=== PATIENT | female | born 1980 | race American Indian/Alaskan Native ===

== ENCOUNTER 2016-09-15 06:20 | Inpatient (IN) | payer MEDICAID ==
[2016-09-11 11:51] LABS: Alanine Aminotransferase 12 units/L (7-56); Albumin 3.7 g/dL (3.9-5); Alkaline Phosphatase 67 units/L (35-129); Anion Gap 15 mmol/L; Bilirubin,Total 0.6 mg/dL (0.1-1.2); Blood Urea Nitrogen 7 mg/dL (7-17); Calcium 8.4 mg/dL (8.4-10.2); Carbon Dioxide 27 mmol/L (22-30); Chloride 99.3 mmol/L (98-107); Glucose 92 mg/dL (65-100); Potassium 4.3 mmol/L (3.6-5.0); Sodium 137 mmol/L (137-145); Total Protein 7.5 g/dL (6.3-8.2)
--- NOTE | 2016-09-15 13:05 | Admit Criteria Form ---
Admission Criteria Documentation: AMBULATORY SURGERY EXCEPTION CRITERIA Ambulatory Surgery Exception Criteria ( Place 'X' for any and all applicable criteria): Surgery or procedure performed on ambulatory basis may require inpatient stay for[A] ANY ONE of the following(1)(2)(3)(4)(5)(6)(7)(8)(9): [X] I. A preoperative situation, condition, or finding that warrants inpatient stay as indicated by ANY ONE of the following: [] a) Inpatient care needed because of severity of a disease or condition rather than the surgery (eg, severe cardiac or respiratory disease, severe infection) (15) (16 ) (17) (18) [] b) Emergent procedure (eg, angioplasty for acute ischemia)(19) [] c) Complex surgical approach or situation as indicated by ANY ONE of the following(3): [] i) Open approach needed instead of usual endoscopic, transcatheter, or other less invasive procedure [] ii) Difficult approach because of previous operation [] iii) Airway monitoring required after open neck procedures(20)(21) [] iv) Large mass requiring unusually extensive dissection [] v) Additional complicating feature requiring inpatient care (eg, drain management)(22(23): [X] d) Major surgery in a pt with high anesthetic risk as indicated by ANY ONE of the following (2)(3)(5)(7)(8): [X] i) ASA risk class III or higher (severe systemic disease impairing function) [D] [] ii) Advanced age (eg, older than 85 years)(14)(24) [] iii) Symptomatic heart failure(25) [] iv) Symptomatic asthma or COPD(8)(21) [] v) Morbid obesity with hemodynamic or respiratory problems(20)( 21)(26)(27) [] vi) Obstructive sleep apnea(20)(21) [] vii) Former premature infants who are younger than 60 weeks [] viii) High risk for severe postoperative abnormalities (eg, severe postoperative hypocalcemia after parathyroidectomy for severe hyperparathyroidism)(27)( 28) [] ix) Unstable angina(25) [] e) Drug-related risk requiring inpatient stay as indicated by ANY ONE of the following(5)(10)(14)(32)(33) [] i) Procedure requires discontinuing drugs or other therapy (eg , antiarrhythmic medication, antiseizure medication), which necessitates inpatient observation or treatment.(18)(31) [] ii) Major surgery and high risk drug use as indicated by ANY ONE of the following: [] 1) Active abuse of cocaine or similar drug [] 2) Monoamine oxidase inhibitor use [] 3) Other drug identified as posing risk [] f) Inadequate outpatient care situation as indicated by ANY ONE of the following(5)(10)(14)(32)(33) [] i) Patient lives remote from medical facility and procedure has urgent complication potential, and temporary nearby residence cannot be arranged [] ii) Patient will have postprocedure incapacitation and inadequate assistance at home, or alternative level of care cannot be arranged. [] iii) Patient will have long general anesthesia or procedure side effect resolution time, and competent person to stay with patient on first postoperative night at home or alternative level of care cannot be arranged. []iv) Other inadequate outpatient situation that cannot be handled by other means [] II. A perioperative event, condition, or finding that warrants inpatient stay as indicated by ANY ONE of the following (1)(2)(3): [] a) Inadequate physiologic recovery: cardiovascular, respiratory, or hemodynamic status not normal or near preoperative baseline(18) [] b) Hemodynamic instability [] c) Patient not alert with near normal or baseline mental status [] d) Temperature not normal or as expected and not appropriate for outpatient treatment of condition [] e) Ambulatory or appropriate activity level status not yet achieved post procedure [E](34)(35)(36) [] f) Operative site not appropriate (eg, unexpected or excessive drainage or bleeding) [] g) Postoperative effects not resolved or adequately managed (eg, significant pain or vomiting not appropriate for outpatient or next level of care)(10)(12) [] h) Complicating features requiring inpatient care as indicated by ANY ONE of the following(37): [] i) Severe complications of procedure (eg, bowel injury, airway compromise, vascular injury,severe hemorrhage) [] ii) Extensive (eg, dissection far beyond usual scope of procedure ) or prolonged (eg, 120 minutes beyond usual) surgery needed requiring inpatient postoperative care [] iii) Conversion to an open or complex procedure that requires inpatient care (eg, open vs laparoscopic cholecystectomy, abdominal vs vaginal hysterectomy)(38) [] iv) Comorbid condition or test result identified during or post procedure that requires inpatient care (7) [] v) Malignant hyperthermia(30) [] vi) Other complicating feature requiring inpatient care(22)(23) Inpatient stay may be needed until ALL of the following are present (1)(2)(3)(4) (5)(6)(10)(14)(33)(40): []a) Physiologic recovery: cardiovascular, respiratory, and hemodynamic status normal or near preoperative baseline []b) Hemodynamic stability []c) Patient alert, with near normal or baseline mental status []d) Temperature appropriate: patient afebrile or temperature appropriate for outpt treatment of condition []e) Activity level appropriate: ambulatory or appropriate activity level post procedure []f) Operative site appropriate as indicated by ALL of the following: []i) Site dry or with expected drainage []ii) Any blood noted is as expected for procedure. []g) Postoperative effects resolved or managed as indicated by ALL of the following: []i) Pain management appropriate for outpatient (or next level of) care(10) []ii) Minimal nausea and vomiting: if present, successfully treated with oral medication(12) []iii) Headache, dizziness, or drowsiness (if present) are mild. []h) Voiding status acceptable as indicated by ANY ONE of the following: []i) Voiding spontaneously []ii) No voiding but instructions given for follow-up in 6 to 8 hours []iii) Urinary catheter in place, and instructions given for follow-up []i) Complicating features requiring inpatient care manageable at a lower level of care(37) []j) Comorbid conditions manageable at a lower level of care(37) The original [employer] content created by [employer] has been revised. The portions of the content which have been revised are identified through the use of italic text or in bold, and [address] [facility] [email or web address] has neither reviewed nor approved the modified material. All other unmodified content is copyright [employer]. Please see references footnoted in the original [employer] edition 2016 Admission Criteria Met: Yes
[2016-09-15] MEDS ORDERED: XYLOCAINE MPF 2% ONE (13:56)
[2016-09-15] MEDS ORDERED: DECADRON ONE (13:56)
[2016-09-15] MEDS ORDERED: DILAUDID ONE (13:56)
[2016-09-15] MEDS ORDERED: DIPRIVAN 10 MG/ML IV ONE (13:56)
[2016-09-15] MEDS ORDERED: ZEMURON IV ONE (13:57)
[2016-09-15] MEDS ORDERED: ZOFRAN ONE (13:57)
--- NOTE | 2016-09-15 13:57 | Anesthesia Consultation ---
Anesthesia Consult and Med Hx Date of service: 09/15/16 - Airway Anesthetic Teeth Evaluation: Good ROM Head & Neck: Adequate Mental/Hyoid Distance: Adequate Mallampati Class: Class II Intubation Access Assessment: Probably Good - Pulmonary Exam CTA: Yes - Cardiac Exam Cardiac Exam: RRR - Pre-Operative Health Status ASA Pre-Surgery Classification: ASA3 Proposed Anesthetic Plan: General - Pulmonary Hx Smoking: Yes (CIGARETTES 1 PPM X 6 YRS, QUIT IN 1998) Hx Asthma: Yes Hx Sleep Apnea: No - Cardiovascular System Hx Hypertension: No - Central Nervous System Hx Psychiatric Problems: No - Gastrointestinal Hx Gastroesophageal Reflux Disease: Yes (mild) - Other Systems Hx Cancer: No Hx Obesity: Yes (morbid) - Additional Comments Anesthesia Medical History Comments: No problems with previous anesthesias.
[2016-09-15] MEDS ORDERED: NACL 0.9% 1000 ML 1,000 ML IV SCH (14:00)
[2016-09-15] MEDS ORDERED: PEPCID PO NR (14:00)
[2016-09-15] MEDS ORDERED: VERSED IV NR (14:00)
[2016-09-15] MEDS ORDERED: TRANSDERM-SCOP TD NR (14:00)
[2016-09-15] MEDS ORDERED: NACL BACTERIOSTATIC INFILTRATI ONE (14:08)
[2016-09-15] MEDS ORDERED: DILAUDID IV PRN (14:21)
[2016-09-15] MEDS ORDERED: ZOFRAN IV PRN (14:21)
--- NOTE | 2016-09-15 14:21 | Anesthesia Day of Surgery ---
Anesthesia Day of Surgery - Day of Surgery Patient Examined: Yes Patient H&P Reviewed: Yes Patient is NPO: Yes
[2016-09-15] MEDS ORDERED: PEPCID IV NR (15:00)
[2016-09-15] MEDS ORDERED: ANCEF/STERILE WATER 2 GM/20 ML IV NR (16:00)
[2016-09-15] MEDS ORDERED: FLAGYL 500 MG/100 ML 100 ML IV NR (16:00)
[2016-09-15] MEDS ORDERED: LOVENOX SUB-Q NR (16:00)
[2016-09-15] MEDS ORDERED: BENADRYL IV PRN (16:48)
[2016-09-15] MEDS ORDERED: MARCAINE-EPI 0.5%-1:200,000 INFILTRATI ONE (16:50)
[2016-09-15] MEDS ORDERED: XYLOCAINE 1% 20 mL INFILTRATI ONE (16:59)
[2016-09-15] MEDS ORDERED: NACL 0.9% IR ONE (16:59)
[2016-09-15] MEDS ORDERED: ePHEDrine SULFATE ONE (17:15)
[2016-09-15] MEDS ORDERED: TORADOL IV SCH (18:00)
[2016-09-15] MEDS ORDERED: NACL 0.9% 1000 ML 1,000 ML ONE (18:01)
--- NOTE | 2016-09-15 20:11 | Post Anesthesia Evaluation ---
- Post Anesthesia Evaluation Patient Participated: Yes Airway Patent: Yes Stable Respiratory Function: Yes Nausea/Vomiting: No Temp > 96.8F: Yes Pain Manageable: Yes Adequeate Hydration: Yes Anesthesia Complications: No Block Receding Appropriately: Not Applicable Patient on Ventilator: No
[2016-09-15] MEDS ORDERED: SUBLIMAZE ONE (20:22)
[2016-09-15] MEDS ORDERED: ATIVAN ONE (20:45)
[2016-09-15 20:48] LABS: Hematocrit 38.5 % (30.3-42.9); Hemoglobin 12.3 gm/dl (10.1-14.3); Mean Corpuscular HGB Conc 32 % (30-34); Mean Corpuscular Hemoglobin 28 pg (28-32); Mean Corpuscular Volume 87 fl (79-97); Platelet Count 337 K/mm3 (140-440); Red Blood Count 4.44 M/mm3 (3.65-5.03); Red Cell Distribution Width 14.5 % (13.2-15.2); White Blood Count 12.5 K/mm3 (4.5-11.0)
[2016-09-15 21:25] LABS: Creatine Kinase MB 2.5 ng/mL (0.0-4.0)
[2016-09-15 21:26] LABS: Creatine Kinase 204 units/L (30-135)
--- NOTE | 2016-09-15 21:28 | Event Note ---
Date: 09/15/16 Code MET called. Arrived at bedside. Respiratory therapist, nurses and family at patient's bedside. Patient is complaining of epigastric chest pain and difficulty breathing. Upon arrival patient is on 100% non-rebreather mask, oxygen saturation 100%, HR 99, BP 130/80's. Chest auscultation revealed clear breath sounds, Heart: normal S1S2. Patient answers appropriately to questions. Fentanyl given for chest pain. ECG done was unremarkable. Stat H/H and cardiac enzymes sent. On further evaluation it appears that patient was having brief episodes of seizure, however oxygen saturation remains 100%. Patient was not post-ictal and she continues to answer questions appropriately soon after. Hospitalist consult obtained at the request of Dr Bullock whom was notified. Ativan given and Hospitalist assumed care. Patients daughters at bedside emotionally upset, aggressive and accusatory. Security requested to be at the bedside.
[2016-09-15] MEDS ORDERED: SUBLIMAZE IV ONE (21:30)
--- NOTE | 2016-09-15 22:00 | Consultation ---
History of Present Illness - Reason for Consult Consult date: 09/15/16 Medical management Requesting physician: HUMBERTO BULLOCK - History of Present Illness Patient having myoclonic movements intermittently every one or 2 minutespost op.Conscious and alert after being given Ativan 2 mg iv and iv fluids. Anesthesia note: Code MET called. Arrived at bedside. Respiratory therapist, nurses and family at patient's bedside. Patient is complaining of epigastric chest pain and difficulty breathing. Upon arrival patient is on 100% non-rebreather mask, oxygen saturation 100%, HR 99, BP 130/80's. Chest auscultation revealed clear breath sounds, Heart: normal S1S2. Patient answers appropriately to questions. Fentanyl given for chest pain. ECG done was unremarkable. Stat H/H and cardiac enzymes sent. On further evaluation it appears that patient was having brief episodes of seizure, however oxygen saturation remains 100%. Patient was not post-ictal and she continues to answer questions appropriately soon after. Hospitalist consult obtained at the request of Dr Bullock whom was notified. Ativan given and Hospitalist assumed care. Patients daughters at bedside emotionally upset, aggressive and accusatory. Security requested to be at the bedside. Hx of Asthma and obesity Past History Past Medical History: other (asthma) Past Surgical History: Other (Gastric sleeve surgery) Medications and Allergies Allergies Allergy/AdvReac Type Severity Reaction Status Date / Time morphine Allergy Itching,RED Verified 09/15/16 17:19 NESS Home Medications Medication Instructions Recorded Confirmed Last Taken Type ALBUTEROL Inhaler [Proair] 2 puff IH QID PRN 09/08/16 09/15/16 06/22/16 History Active Meds: Active Medications Cefazolin Sodium (Ancef/Sterile Water 2 Gm/20 Ml) 2 gm IV PREOP NR Stop: 09/18/16 15:59 Diphenhydramine HCl (Benadryl) 25 mg IV Q6H PRN PRN Reason: Itching Enoxaparin Sodium (Lovenox) 40 mg SUB-Q QDAY OMAR Famotidine (Pepcid) 20 mg IV PREOP NR Stop: 09/15/16 23:59 Last Admin: 09/15/16 15:12 Dose: 20 mg Hydromorphone HCl (Dilaudid) 0.5 mg IV Q10MIN PRN PRN Reason: Pain , Severe (7-10) Stop: 09/18/16 14:22 Hydromorphone HCl (Dilaudid) 0.5 mg IV Q3H PRN PRN Reason: Pain , Severe (7-10) Sodium Chloride (Nacl 0.9% 1000 Ml) 1,000 mls @ 75 mls/hr IV DIRECT OMAR Last Admin: 09/15/16 15:08 Dose: 75 mls/hr Cefazolin Sodium (Ancef/Ns 1 Gm/50 Ml) 50 mls @ 100 mls/hr IV Q8H OMAR PRN Reason: Protocol Stop: 09/16/16 01:29 Lactated Ringer's (Lactated Ringers) 1,000 mls @ 150 mls/hr IV DIRECT OMAR Ketorolac Tromethamine (Toradol) 30 mg IV Q6H OMAR Stop: 09/17/16 17:59 Midazolam HCl (Versed) 2 mg IV PREOP NR Stop: 09/15/16 23:59 Last Admin: 09/15/16 15:21 Dose: 2 mg Ondansetron HCl (Zofran) 4 mg IV Q8H PRN PRN Reason: Nausea And Vomiting Scopolamine (Transderm-Scop) 1 each TD PREOP NR Stop: 09/18/16 13:59 Last Admin: 09/15/16 15:11 Dose: 1 each Exam - Constitutional Vitals: Temp Pulse Resp BP Pulse Ox 98.7 F 63 18 112/47 100 09/15/16 14:50 09/15/16 14:50 09/15/16 14:50 09/15/16 14:50 09/15/16 19:55 General appearance: Present: no acute distress, well-nourished - EENT Eyes: Present: PERRL ENT: hearing intact, clear oral mucosa - Neck Neck: Present: supple, normal ROM - Respiratory Respiratory effort: normal Respiratory: bilateral: CTA - Cardiovascular Heart Sounds: Present: S1 & S2. Absent: rub, click - Extremities Extremities: pulses symmetrical, No edema Peripheral Pulses: within normal limits - Abdominal General gastrointestinal: Present: soft, non-tender, non-distended, normal bowel sounds Female genitourinary: Present: normal - Integumentary Integumentary: Present: clear, warm, dry - Musculoskeletal Musculoskeletal: gait normal, strength equal bilaterally - Psychiatric Psychiatric: appropriate mood/affect, intact judgment & insight - Neurologic Neurologic: CNII-XII intact, moves all extremities Results - Labs CBC & Chem 7: 09/15/16 20:34 09/11/16 11:27 Labs: Abnormal lab results 09/15/16 09/15/16 09/15/16 Range/Units 20:17 20:34 20:34 WBC 12.5 H (4.5-11.0) K/mm3 POC Glucose 127 H (70-105) Total Creatine Kinase 204 H (30-135) units/L Assessment and Plan Patient has hx of Asthma Xopenex Neb tx Q* Post op Myoclonic movements Ativan 2mg iv given Ativan 1 mg q3 h prn
[2016-09-15] MEDS ORDERED: ATIVAN IV PRN (22:06)
[2016-09-15] MEDS ORDERED: XOPENEX IH PRN (22:08)
[2016-09-15] MEDS ORDERED: PROVENTIL IH PRN (22:28)
[2016-09-15] MEDS ORDERED: KEPPRA 1,000 MG in D5W 100 ML IV SCH (23:00)
--- NOTE | 2016-09-15 23:04 | Event Note ---
Date: 09/15/16 Patient continues to have Myocolonic seizures versus Tonic clonic seizures inspite of Ativan.1 gm Keppra ordered and patient transferred to ICU with a wastewater plant operator consult and Neuro consult.
[2016-09-15] MEDS: DILAUDID IV PRN (23:52)
[2016-09-16] MEDS: ANCEF/NS 1 GM/50 ML 50 ML IV SCH ×2 (01:00→07:53)
[2016-09-16 01:10] LABS: BUN/Creatinine Ratio 8.57; Blood Urea Nitrogen 6 mg/dL (7-17); Calcium 7.8 mg/dL (8.4-10.2); Carbon Dioxide 22 mmol/L (22-30); Chloride 101.6 mmol/L (98-107); Glucose 145 mg/dL (65-100); Sodium 136 mmol/L (137-145)
[2016-09-16 01:11] LABS: Anion Gap 16 mmol/L
[2016-09-16] MEDS: DILAUDID IV PRN ×3 (02:54→07:51)
[2016-09-16 05:48] LABS: Magnesium 1.9 mg/dL (1.7-2.3); Phosphorous 2.7 mg/dL (2.5-4.5)
--- NOTE | 2016-09-16 07:21 | Cat Scan Report ---
FINAL REPORT PROCEDURE: CT HEAD/BRAIN WO CON TECHNIQUE: Computerized tomography of the head was performed without contrast material. HISTORY: seizures post op COMPARISON: No prior studies are available for comparison. FINDINGS: Skull and scalp: Normal. Paranasal sinuses: There fluid in the left maxillary sinus.. Ventricles and subarachnoid spaces: Normal. Cerebrum: No evidence of hemorrhage, acute infarction or mass . Cerebellum and brainstem: No evidence of hemorrhage, acute infarction or mass. Vasculature: Normal. Comments: There are scattered ossified areas of the falx.. IMPRESSION: There is no acute intracranial abnormality. There is left maxillary sinusitis.
[2016-09-16] MEDS ORDERED: LOVENOX SUB-Q SCH (10:00)
[2016-09-16 10:17] LABS: Basophils % (Auto) 0.7 % (0.0-1.8); Eosinophils % (Auto) 0.1 % (0.0-4.3); Hematocrit 37.5 % (30.3-42.9); Hemoglobin 12.2 gm/dl (10.1-14.3); Mean Corpuscular HGB Conc 33 % (30-34); Mean Corpuscular Hemoglobin 28 pg (28-32); Mean Corpuscular Volume 86 fl (79-97); Platelet Count 327 K/mm3 (140-440); Red Blood Count 4.39 M/mm3 (3.65-5.03); Red Cell Distribution Width 14.1 % (13.2-15.2); White Blood Count 10.5 K/mm3 (4.5-11.0)
[2016-09-16 10:36] LABS: Alanine Aminotransferase 20 units/L (7-56); Albumin 3.5 g/dL (3.9-5); Albumin/Globulin Ratio 0.9 %; Alkaline Phosphatase 56 units/L (35-129); Anion Gap 19 mmol/L; BUN/Creatinine Ratio 8.57; Bilirubin,Total 0.7 mg/dL (0.1-1.2); Blood Urea Nitrogen 6 mg/dL (7-17); Calcium 8.1 mg/dL (8.4-10.2); Carbon Dioxide 23 mmol/L (22-30); Chloride 101.1 mmol/L (98-107); Glucose 97 mg/dL (65-100); Potassium 4.3 mmol/L (3.6-5.0); Sodium 139 mmol/L (137-145); Total Protein 7.3 g/dL (6.3-8.2)
--- NOTE | 2016-09-16 10:55 | Consultation ---
History of Present Illness Consult date: 09/16/16 Requesting physician: MARIAELENA SANABRIA Reason for consult: other (Seizures; AMS) History of present illness: PULMONARY/CCM CONSULT NOTE (Full dictation # [id number]) Please see dictated notes for full details A&P: - prn Ativan - stat EEG +/- neurology evaluation - stat CXR (re: chest Pain) - ABG (r/o sub-clinical respiratory compromise) - discontinue all opiates - may ultimately need psych evaluation ...will follow along Past History Past Medical History: other (asthma) Past Surgical History: Other (Gastric sleeve surgery) Medications and Allergies Allergies Allergy/AdvReac Type Severity Reaction Status Date / Time morphine Allergy Itching,RED Verified 09/15/16 17:19 NESS Home Medications Medication Instructions Recorded Confirmed Last Taken Type ALBUTEROL Inhaler [Proair] 2 puff IH QID PRN 09/08/16 09/15/16 06/22/16 History Active Meds: Active Medications Albuterol (Proventil) 2.5 mg IH Q6HRT PRN PRN Reason: Shortness Of Breath Last Admin: 09/16/16 10:41 Dose: 2.5 mg Diphenhydramine HCl (Benadryl) 25 mg IV Q6H PRN PRN Reason: Itching Last Admin: 09/16/16 04:54 Dose: 25 mg Enoxaparin Sodium (Lovenox) 40 mg SUB-Q QDAY OMAR Famotidine (Pepcid) 20 mg IV BID OMAR Hydromorphone HCl (Dilaudid) 0.5 mg IV Q3H PRN PRN Reason: Pain , Severe (7-10) Last Admin: 09/16/16 07:51 Dose: 0.5 mg Sodium Chloride (Nacl 0.9% 1000 Ml) 1,000 mls @ 75 mls/hr IV DIRECT OMAR Last Admin: 09/15/16 15:08 Dose: 75 mls/hr Lactated Ringer's (Lactated Ringers) 1,000 mls @ 150 mls/hr IV DIRECT OMAR Levetiracetam 1,000 mg/ (Dextrose) 110 mls @ 400 mls/hr IV Q12HR OMAR Last Admin: 09/15/16 23:00 Dose: 400 mls/hr Ketorolac Tromethamine (Toradol) 15 mg IV Q6HR OMAR Stop: 09/21/16 00:00 Ondansetron HCl (Zofran) 4 mg IV Q8H PRN PRN Reason: Nausea And Vomiting Scopolamine (Transderm-Scop) 1 each TD PREOP NR Stop: 09/18/16 13:59 Last Admin: 09/15/16 15:11 Dose: 1 each Physical Examination Vital signs: Vital Signs Temp Pulse Resp BP Pulse Ox 98.7 F 63 18 112/47 98 09/15/16 13:10 09/15/16 13:10 09/15/16 13:10 09/15/16 13:10 09/15/16 13:10 Results - Laboratory Findings CBC and BMP: 09/16/16 09:58 09/16/16 09:58 Abnormal lab findings: Abnormal Labs 09/11/16 09/15/16 09/15/16 11:27 20:17 20:34 WBC Lymph % (Auto) Seg Neutrophils % Seg Neutrophils # Sodium BUN Glucose POC Glucose 127 H Calcium Total Creatine Kinase 204 H Albumin 3.7 L 09/15/16 09/15/16 09/16/16 20:34 23:47 09:58 WBC 12.5 H Lymph % (Auto) 12.7 L Seg Neutrophils % 81.5 H Seg Neutrophils # 8.5 H Sodium 136 L BUN 6 L Glucose 145 H POC Glucose Calcium 7.8 L Total Creatine Kinase Albumin 09/16/16 09:58 WBC Lymph % (Auto) Seg Neutrophils % Seg Neutrophils # Sodium BUN 6 L Glucose POC Glucose Calcium 8.1 L Total Creatine Kinase Albumin 3.5 L
[2016-09-16] MEDS ORDERED: ATIVAN ONE (10:56)
[2016-09-16 11:19] LABS: ISTAT Base Excess -4; ISTAT HCO3 21.4; ISTAT PCO2 38.6 (35-45); ISTAT PH 7.352 (7.35-7.45); ISTAT PO2 137 (80-105); ISTAT SO2 99; ISTAT TCO2 23
--- NOTE | 2016-09-16 11:32 | XRay Report ---
AP CHEST: HISTORY: chest pain AP view of the chest demonstrates a normal mediastinal and cardiac contour with clear lungs and normal bony and soft tissue structures. IMPRESSION: Unremarkable AP chest.
[2016-09-16] MEDS: TORADOL IV SCH ×4 (12:00→18:07)
[2016-09-16] MEDS ORDERED: ATIVAN IV PRN (12:04)
--- NOTE | 2016-09-16 12:29 | Progress Note ---
Assessment and Plan POD#1 s/p lap Sleeve gastrectomy being worked up for seizure disroder. Doing well from surgical stand point OK for d.c from our stand point when cleared by ICU/Internal medicine Subjective Date of service: 09/16/16 Narrative: Underwent code MET last night and transfered to CCU. Pateint had tonicoclonic movements with associated chest pain (chronic complaint) but didnt have post ixctal state responding questions appropriately. Discussed with family and appear to be a "reaction" to narcotics since she experienced similar episode after last Patient resting comfortable complains of on/off upper retrosternal pain. She have had this pain several times in the past and has been fully worked up. Not cardiogenic or lung/esophageal origin. Was told to be costochondritis. Has been seen in the ER for it multiple times in the past. No pain at this time tho. Objective Vital Signs - 12hr 09/16/16 09/16/16 09/16/16 00:32 01:00 02:00 Temperature Pulse Rate 98 H 84 Pulse Rate [ Bilateral Throughout] Respiratory 24 18 15 Rate Respiratory Rate [Bilateral Throughout] Blood Pressure 127/72 131/72 O2 Sat by Pulse 100 99 Oximetry 09/16/16 09/16/16 09/16/16 02:55 02:57 02:59 Temperature Pulse Rate 97 H 95 H 80 Pulse Rate [ Bilateral Throughout] Respiratory 15 15 13 Rate Respiratory Rate [Bilateral Throughout] Blood Pressure 131/72 131/72 131/72 O2 Sat by Pulse 100 100 100 Oximetry 09/16/16 09/16/16 09/16/16 03:00 03:13 04:00 Temperature 98.3 F Pulse Rate 84 86 82 Pulse Rate [ Bilateral Throughout] Respiratory 14 13 14 Rate Respiratory Rate [Bilateral Throughout] Blood Pressure 138/83 138/83 120/73 O2 Sat by Pulse 100 100 100 Oximetry 09/16/16 09/16/16 09/16/16 04:59 05:00 05:01 Temperature Pulse Rate 94 H 100 H 91 H Pulse Rate [ Bilateral Throughout] Respiratory 11 L 12 11 L Rate Respiratory Rate [Bilateral Throughout] Blood Pressure 120/73 133/77 133/77 O2 Sat by Pulse 100 99 Oximetry 09/16/16 09/16/16 09/16/16 05:33 05:35 06:00 Temperature Pulse Rate 85 Pulse Rate [ Bilateral Throughout] Respiratory 17 Rate Respiratory Rate [Bilateral Throughout] Blood Pressure 133/77 133/77 128/73 O2 Sat by Pulse 100 100 99 Oximetry 09/16/16 09/16/16 09/16/16 07:00 08:00 08:27 Temperature 98.1 F Pulse Rate 83 70 75 Pulse Rate [ Bilateral Throughout] Respiratory 18 11 L 11 L Rate Respiratory Rate [Bilateral Throughout] Blood Pressure 117/70 121/72 121/72 O2 Sat by Pulse 96 100 100 Oximetry 09/16/16 09/16/16 09/16/16 09:01 09:51 10:00 Temperature Pulse Rate 82 74 Pulse Rate [ Bilateral Throughout] Respiratory 13 13 Rate Respiratory Rate [Bilateral Throughout] Blood Pressure 121/72 121/72 O2 Sat by Pulse 100 100 100 Oximetry 09/16/16 09/16/16 09/16/16 10:01 10:31 10:33 Temperature Pulse Rate 85 86 83 Pulse Rate [ Bilateral Throughout] Respiratory 16 14 13 Rate Respiratory Rate [Bilateral Throughout] Blood Pressure 121/72 121/72 121/72 O2 Sat by Pulse 100 100 100 Oximetry 09/16/16 09/16/16 10:41 11:01 Temperature Pulse Rate 99 H Pulse Rate [ 85 Bilateral Throughout] Respiratory 17 Rate Respiratory 14 Rate [Bilateral Throughout] Blood Pressure 121/72 O2 Sat by Pulse 98 Oximetry - General physical appearance well developed, no distress, obese - Eyes normal occular movement - Neck no lymphadectomy, no venous distension - Respiratory normal expansion, normal respiratory effort, clear to auscultation - Abdomen soft, bowel sounds normal, not distended, not rebound, not guarding, not rigid, wound (c/d/i) Hernia: none - Neurologic other (pateint sleepy but answering questions appropriately) - Labs 09/16/16 09:58 09/16/16 09:58 Diabetes panel 09/15/16 09/16/16 Range/Units 23:47 09:58 Sodium 136 L 139 (137-145) mmol/L Potassium 4.0 4.3 (3.6-5.0) mmol/L Chloride 101.6 101.1 (98-107) mmol/L Carbon Dioxide 22 23 (22-30) mmol/L BUN 6 L 6 L (7-17) mg/dL Creatinine 0.7 0.7 (0.7-1.2) mg/dL Glucose 145 H 97 (65-100) mg/dL Calcium 7.8 L 8.1 L (8.4-10.2) mg/dL AST 33 (5-40) units/L ALT 20 (7-56) units/L Alkaline Phosphatase 56 (35-129) units/L Total Protein 7.3 (6.3-8.2) g/dL Albumin 3.5 L (3.9-5) g/dL Calcium panel 09/15/16 09/16/16 09/16/16 Range/Units 23:47 04:20 09:58 Calcium 7.8 L 8.1 L (8.4-10.2) mg/dL Phosphorus 2.7 (2.5-4.5) mg/dL Albumin 3.5 L (3.9-5) g/dL Pituitary panel 09/15/16 09/16/16 Range/Units 23:47 09:58 Sodium 136 L 139 (137-145) mmol/L Potassium 4.0 4.3 (3.6-5.0) mmol/L Chloride 101.6 101.1 (98-107) mmol/L Carbon Dioxide 22 23 (22-30) mmol/L BUN 6 L 6 L (7-17) mg/dL Creatinine 0.7 0.7 (0.7-1.2) mg/dL Glucose 145 H 97 (65-100) mg/dL Calcium 7.8 L 8.1 L (8.4-10.2) mg/dL Adrenal panel 09/15/16 09/16/16 Range/Units 23:47 09:58 Sodium 136 L 139 (137-145) mmol/L Potassium 4.0 4.3 (3.6-5.0) mmol/L Chloride 101.6 101.1 (98-107) mmol/L Carbon Dioxide 22 23 (22-30) mmol/L BUN 6 L 6 L (7-17) mg/dL Creatinine 0.7 0.7 (0.7-1.2) mg/dL Glucose 145 H 97 (65-100) mg/dL Calcium 7.8 L 8.1 L (8.4-10.2) mg/dL Total Bilirubin 0.7 (0.1-1.2) mg/dL AST 33 (5-40) units/L ALT 20 (7-56) units/L Alkaline Phosphatase 56 (35-129) units/L Total Protein 7.3 (6.3-8.2) g/dL Albumin 3.5 L (3.9-5) g/dL
[2016-09-16] MEDS: LOVENOX SUB-Q SCH (12:55)
[2016-09-16] MEDS: PEPCID IV SCH (13:40)
--- NOTE | 2016-09-16 13:56 | Consultation ---
History of Present Illness Consult date: 09/16/16 Chief complaint: spells History of present illness: this is a 36 YO f here for gastric sleeve surgery. Pt is having spells where she complains of chest pain and then tightens up her body. She responds immediately after she loosens up (5-10 seconds). She just afterwards is asking for ice and swallows appropriately. I witnessed one of these events at the bedside today. Past History Past Medical History: other (asthma) Past Surgical History: Other (Gastric sleeve surgery) Social history: lives with family Family history: hypertension Medications and Allergies Allergies Allergy/AdvReac Type Severity Reaction Status Date / Time morphine Allergy Itching,RED Verified 09/15/16 17:19 NESS Home Medications Medication Instructions Recorded Confirmed Last Taken Type ALBUTEROL Inhaler [Proair] 2 puff IH QID PRN 09/08/16 09/15/16 06/22/16 History Active Meds: Active Medications Albuterol (Proventil) 2.5 mg IH Q6HRT PRN PRN Reason: Shortness Of Breath Last Admin: 09/16/16 10:41 Dose: 2.5 mg Diphenhydramine HCl (Benadryl) 25 mg IV Q6H PRN PRN Reason: Itching Last Admin: 09/16/16 04:54 Dose: 25 mg Enoxaparin Sodium (Lovenox) 40 mg SUB-Q QDAY OMAR Famotidine (Pepcid) 20 mg IV BID OMAR Sodium Chloride (Nacl 0.9% 1000 Ml) 1,000 mls @ 75 mls/hr IV DIRECT OMAR Last Admin: 09/15/16 15:08 Dose: 75 mls/hr Lactated Ringer's (Lactated Ringers) 1,000 mls @ 150 mls/hr IV DIRECT OMAR Ketorolac Tromethamine (Toradol) 15 mg IV Q6HR OMAR Stop: 09/21/16 00:00 Lorazepam (Ativan) 2 mg IV Q1H PRN PRN Reason: Seizures Ondansetron HCl (Zofran) 4 mg IV Q8H PRN PRN Reason: Nausea And Vomiting Scopolamine (Transderm-Scop) 1 each TD PREOP NR Stop: 09/18/16 13:59 Last Admin: 09/15/16 15:11 Dose: 1 each Review of Systems ROS unobtainable: due to mental status Physical Examination - Vital Signs Vital Signs: Vital Signs Temp Pulse Resp BP Pulse Ox 98.7 F 63 18 112/47 98 09/15/16 13:10 09/15/16 13:10 09/15/16 13:10 09/15/16 13:10 09/15/16 13:10 - Constitutional General appearance: older than stated age - Respiratory Respiratory: Present: lungs clear - Cardiovascular Cardiovascular: Present: regular rate - Neurologic Cranial nerve examination: PERRL, EOMI, face symmetric, tongue midline Speech examination: intact Detailed motor examination: grossly full strength in Detailed sensory examination: intact Reflexes: 1+: ankle, bicep, knee, tricep Results - Laboratory Findings CBC and BMP: 09/16/16 09:58 09/16/16 09:58 Abnormal Lab Findings: Abnormal Labs 09/11/16 09/15/16 09/15/16 11:27 20:17 20:34 WBC Lymph % (Auto) Seg Neutrophils % Seg Neutrophils # POC ABG pO2 Sodium BUN Glucose POC Glucose 127 H Calcium Total Creatine Kinase 204 H Albumin 3.7 L 09/15/16 09/15/16 09/16/16 20:34 23:47 09:58 WBC 12.5 H Lymph % (Auto) 12.7 L Seg Neutrophils % 81.5 H Seg Neutrophils # 8.5 H POC ABG pO2 Sodium 136 L BUN 6 L Glucose 145 H POC Glucose Calcium 7.8 L Total Creatine Kinase Albumin 09/16/16 09/16/16 09:58 11:14 WBC Lymph % (Auto) Seg Neutrophils % Seg Neutrophils # POC ABG pO2 137 H Sodium BUN 6 L Glucose POC Glucose Calcium 8.1 L Total Creatine Kinase Albumin 3.5 L - Diagnostic Findings Additional findings: CT head normal Assessment and Plan Spells Recommend: The event that the patient had while I was at the bedside was NOT an epileptic seizure. Family at bedside said this was a typical event for her. Pt complains of chest pain with the spells. Would do cardiac workup. consider EEG and MRI Brain for thorough evaluation of the brain although no focal deficits on exam. Continue care for her medical and surgical issues as you are doing. Thank you for this consult. Call with questions.
[2016-09-16] MEDS ORDERED: NITROSTAT SL PRN (15:28)
--- NOTE | 2016-09-16 18:24 | Progress Note ---
Assessment and Plan Assessment and plan: 1. Myoclonic jerks After discussing with the patient and her family, it appears that they are a behavioral issue, no further workup is needed, neurology input appreciated 2. Chest pain We'll order serial troponins , EKG and obtain a stress test in the morning. 3. Pain control and advance of diets past surgery team. History Interval history: Patient is allergic continues to have nausea, her family at bedside to that she has this jerking 100 movements typically when she has chest pain. She states that she is hungry and her abdominal pain is somewhat better controlled now. Hospitalist Physical - Physical exam Narrative exam: General: Patient appears well in no distress HEENT: MMM, EOMI cardiac: S1-S2 heard lungs: clear to auscultation, abdomen: soft, nontender, nondistended bowel sounds positive extremities: no edema clubbing or cyanosis Skin: no rash or lesion Neuro: no focal deficit Psych: appropriate behavior and mood, cognition intact - Constitutional Vitals: Temp Pulse Resp BP Pulse Ox 98.7 F 83 15 101/57 100 09/16/16 12:00 09/16/16 17:05 09/16/16 17:05 09/16/16 17:05 09/16/16 17:05 General appearance: Present: no acute distress, well-nourished Results - Labs CBC & Chem 7: 09/16/16 09:58 09/16/16 09:58 Labs: Laboratory Last Values WBC 10.5 K/mm3 (4.5-11.0) 09/16/16 09:58 RBC 4.39 M/mm3 (3.65-5.03) 09/16/16 09:58 Hgb 12.2 gm/dl (10.1-14.3) 09/16/16 09:58 Hct 37.5 % (30.3-42.9) 09/16/16 09:58 MCV 86 fl (79-97) 09/16/16 09:58 MCH 28 pg (28-32) 09/16/16 09:58 MCHC 33 % (30-34) 09/16/16 09:58 RDW 14.1 % (13.2-15.2) 09/16/16 09:58 Plt Count 327 K/mm3 (140-440) 09/16/16 09:58 Lymph % (Auto) 12.7 % (13.4-35.0) L 09/16/16 09:58 [place] % (Auto) 5.0 % (0.0-7.3) 09/16/16 09:58 Eos % (Auto) 0.1 % (0.0-4.3) 09/16/16 09:58 Baso % (Auto) 0.7 % (0.0-1.8) 09/16/16 09:58 Lymph # 1.3 K/mm3 (1.2-5.4) 09/16/16 09:58 [place] # 0.5 K/mm3 (0.0-0.8) 09/16/16 09:58 Eos # 0.0 K/mm3 (0.0-0.4) 09/16/16 09:58 Baso # 0.1 K/mm3 (0.0-0.1) 09/16/16 09:58 Seg Neutrophils % 81.5 % (40.0-70.0) H 09/16/16 09:58 Seg Neutrophils # 8.5 K/mm3 (1.8-7.7) H 09/16/16 09:58 POC ABG pH 7.352 (7.35-7.45) 09/16/16 11:14 POC ABG pCO2 38.6 (35-45) 09/16/16 11:14 POC ABG pO2 137 (80-105) H 09/16/16 11:14 POC ABG HCO3 21.4 09/16/16 11:14 POC ABG Total CO2 23 09/16/16 11:14 POC ABG O2 Sat 99 09/16/16 11:14 POC ABG Base Excess -4 09/16/16 11:14 FiO2 28 % 09/16/16 11:14 Sodium 139 mmol/L (137-145) 09/16/16 09:58 Potassium 4.3 mmol/L (3.6-5.0) 09/16/16 09:58 Chloride 101.1 mmol/L (98-107) 09/16/16 09:58 Carbon Dioxide 23 mmol/L (22-30) 09/16/16 09:58 Anion Gap 19 mmol/L 09/16/16 09:58 BUN 6 mg/dL (7-17) L 09/16/16 09:58 Creatinine 0.7 mg/dL (0.7-1.2) 09/16/16 09:58 Estimated GFR > 60 ml/min 09/16/16 09:58 BUN/Creatinine Ratio 8.57 % 09/16/16 09:58 Glucose 97 mg/dL (65-100) 09/16/16 09:58 POC Glucose 127 (70-105) H 09/15/16 20:17 Calcium 8.1 mg/dL (8.4-10.2) L 09/16/16 09:58 Phosphorus 2.7 mg/dL (2.5-4.5) 09/16/16 04:20 Magnesium 1.9 mg/dL (1.7-2.3) 09/16/16 04:20 Total Bilirubin 0.7 mg/dL (0.1-1.2) 09/16/16 09:58 AST 33 units/L (5-40) 09/16/16 09:58 ALT 20 units/L (7-56) 09/16/16 09:58 Alkaline Phosphatase 56 units/L (35-129) 09/16/16 09:58 Total Creatine Kinase 204 units/L (30-135) H 09/15/16 20:34 CK-MB (CK-2) 2.5 ng/mL (0.0-4.0) 09/15/16 20:34 CK-MB (CK-2) Rel Index 1.2 (0-4) 09/15/16 20:34 Troponin T < 0.010 ng/mL (0.00-0.029) 09/16/16 16:07 Total Protein 7.3 g/dL (6.3-8.2) 09/16/16 09:58 Albumin 3.5 g/dL (3.9-5) L 09/16/16 09:58 Albumin/Globulin Ratio 0.9 % 09/16/16 09:58 HCG, Qual Negative (Negative) 09/11/16 11:27
[2016-09-17 00:34] LABS: ISTAT Base Excess 0; ISTAT HCO3 23.7; ISTAT PCO2 35.1 (35-45); ISTAT PH 7.437 (7.35-7.45); ISTAT PO2 172 (80-105); ISTAT SO2 100; ISTAT TCO2 25
[2016-09-17] MEDS: TORADOL IV SCH ×6 (00:45→23:04)
[2016-09-17] MEDS: LACTATED RINGERS 1,000 ML IV SCH ×2 (00:45→18:00)
[2016-09-17] MEDS: PEPCID IV SCH ×3 (00:47→23:04)
--- NOTE | 2016-09-17 02:59 | Consultation ---
CONSULTING PHYSICIANS: 1. Gemma Dotson MD 2. Dr. Bullock. REASON FOR CONSULTATION: Seizure disorder, altered mental status. CHIEF COMPLAINT AND HISTORY OF PRESENT ILLNESS: The patient is a 36-year-old -[place] female with past medical history significant only for asthma, according to her family in the room including her dad who came in apparently for gastric sleeve surgery, I believe that is what she came in for. Yesterday while on the medical floor, a code MET was called. The patient was having myoclonic type movements intermittently, reported as every 2 minutes postop. She was given some Ativan, became a little bit more alert and responsive. She reportedly was foaming at the mouth at that point, but really did not display any postictal symptoms. Hospitality services were initially consulted and ultimately, the patient was transferred to the Intensive Care Unit. When I stopped by to see the patient, she was lying peacefully in bed. Her family was at the bedside including her father, and I was trying to get some information from her. She showed me 3 fingers to request, she appeared to be responding to my impressions, complained of chest pain, then all of a sudden she went into another episode of the myoclonic type activity. According to the family, she has an allergy to morphine that makes her reactive the way she is reactive at this time. That really is as much of the history of this presentation, I should mention that review of the records do show that she has about a less than 10 pack years tobacco smoking history, quit smoking in 1998 and she is obese. That really is as much of the history of presentation as I have. PAST MEDICAL HISTORY: Gastroesophageal reflux disease, obesity, asthma. PAST SURGICAL HISTORY: Now, status post gastric sleeve surgery and according to the family, they think she also had a hernia repair. MEDICATIONS: She was on at the time I stopped by to see her, according to the medication administration record included the following: Albuterol nebulized treatments q.6 hours p.r.n., Lovenox 40 mg subcutaneous daily, Pepcid 20 mg IV b.i.d., Dilaudid 0.5 mg IV q. 3 hours p.r.n., Toradol 15 mg IV q. 6 hours scheduled. She had received some lactated Ringer's at 150 mL an hour. Keppra 1000 mg IV q. 12 hours, Zofran 4 mg IV q. 8 hours p.r.n., scopolamine 1 patch transdermally to skin which she got preoperatively. ALLERGIES: Morphine which reportedly causes this myoclonic type movement. DIET: Obese lady, acute weight loss or gain history is unknown. FAMILY AND SOCIAL HISTORY: Lives in the community. Less than 10 pack year tobacco smoking history. No alcohol or illicit drug use or abuse reported. REVIEW OF SYSTEMS: Unobtainable secondary to the patient's medical and mental activity. Since she has been here, no gross hematochezia or melena, no gross hematuria, no hematemesis. She had the foaming at the mouth, but no actual hemoptysis and she is complaining of chest pain. Review of systems otherwise again unobtainable. PHYSICAL EXAMINATION: VITAL SIGNS: At presentation, temperature 98.7, pulse was 63, respiratory rate was 18, blood pressure was 112/47, oxygen sats were 98%, inspired oxygen concentration was not recorded. HEENT: Pupils are equal, round, about 3 mm, sluggishly reactive to light. Extraocular muscle movements could not be adequately assessed. Grossly, no palpable lymph nodes in the supraclavicular or submandibular lymph node chains. LUNGS: Auscultation of both lung carrion unremarkable. Lungs are clear bilaterally. HEART: Heart sounds 1 and 2 are heard, regular rate and rhythm at the time of my evaluation. ABDOMEN: Soft, full, bowel sounds are positive, perhaps mild epigastric tenderness. EXTREMITIES: Without overt digital clubbing, cyanosis, or pedal edema. NEUROLOGIC: No gross focal neurologic deficits. Does have those intermittent myoclonic type activity. LABORATORY DATA: From my review admission, white cell count 12,500, hemoglobin 12.3, hematocrit 38.5, platelets 337. Serum sodium 137, potassium 4.3, chloride 99, bicarbonate 27, BUN 7, creatinine 0.7, and glucose of 92. Albumin 3.7. Liver function tests essentially within normal limits. Troponin was within normal limits. CPK was up a little bit at 204. RADIOGRAPHIC STUDIES: Again, the CT of the head has been read, it was read as normal CT. Left maxillary sinusitis. No acute intracranial abnormality. ASSESSMENT AND PLAN: We have a lady, status post relatively none major surgery, I would say, who is having possible seizure activity, myoclonic type jerk, possible adverse reaction to medication, and unfortunately also possible convulsion reaction or some psychiatric related condition. I believe the best approach obviously is to ensure there is nothing major going on. CT of the brain is normal that is great. A stat EEG will be ordered to ensure there is no actual seizure activity, especially as she has been placed on the Keppra. We need to make a decision whether this can be continued as an outpatient. I will be discontinuing the Dilaudid in case there is a possibility of some cross reactivity, although I do not know that she has been given any. We will get an arterial blood gas to ensure that there is no respiratory compromise at this time that is subclinical. Neurology evaluation may be of benefit. We will use p.r.n. Ativan to control myoclonic type activity. Other cardiac workup has been negative. A stat chest x-ray will be done in light of her chest pain complaints. She is appropriately on GI and DVT prophylaxis. Flu and pneumonia vaccination will be per protocol. I have reviewed the arterial blood gas and it shows a little bit of metabolic acidosis going on, but the pH is balanced at 7.35, pCO2 of 39, and pO2 of 137 on 2 liters nasal cannula. So, we will be able to sedate her and if necessary, bilevel positive airway pressure ventilation therapy will be used p.r.n. Thank you very much for the consult Dr. Bullock. I think once we have ruled out any major issues and we have not found any then she can be treated more conservatively and perhaps may actually need a psychiatric evaluation at that point. JOB# [id number] LUIS/MINISTERIO
--- NOTE | 2016-09-17 07:33 | Progress Note ---
Assessment and Plan Assessment and plan: 1. Myoclonic jerks After discussing with the patient and her family, it appears that they are a behavioral issue, no further workup is needed, neurology input appreciated 2. Chest pain Serial trops negative for stress test this am. 3. Pain control and advance of diets past surgery team. History Interval history: Patient is continues to have nausea, states that she has no jerky movements or LOC. She states that she is hungry and her abdominal pain is somewhat better controlled now. Hospitalist Physical - Physical exam Narrative exam: General: Patient appears well in no distress HEENT: MMM, EOMI cardiac: S1-S2 heard lungs: clear to auscultation, abdomen: soft, nontender, nondistended bowel sounds positive extremities: no edema clubbing or cyanosis Skin: no rash or lesion Neuro: no focal deficit Psych: appropriate behavior and mood, cognition intact - Constitutional Vitals: Temp Pulse Resp BP Pulse Ox 98.1 F 67 20 111/71 100 09/17/16 05:39 09/17/16 05:39 09/17/16 05:39 09/17/16 05:39 09/17/16 05:39 General appearance: Present: no acute distress, well-nourished Results - Labs CBC & Chem 7: 09/16/16 09:58 09/16/16 09:58 Labs: Laboratory Last Values WBC 10.5 K/mm3 (4.5-11.0) 09/16/16 09:58 RBC 4.39 M/mm3 (3.65-5.03) 09/16/16 09:58 Hgb 12.2 gm/dl (10.1-14.3) 09/16/16 09:58 Hct 37.5 % (30.3-42.9) 09/16/16 09:58 MCV 86 fl (79-97) 09/16/16 09:58 MCH 28 pg (28-32) 09/16/16 09:58 MCHC 33 % (30-34) 09/16/16 09:58 RDW 14.1 % (13.2-15.2) 09/16/16 09:58 Plt Count 327 K/mm3 (140-440) 09/16/16 09:58 Lymph % (Auto) 12.7 % (13.4-35.0) L 09/16/16 09:58 [place] % (Auto) 5.0 % (0.0-7.3) 09/16/16 09:58 Eos % (Auto) 0.1 % (0.0-4.3) 09/16/16 09:58 Baso % (Auto) 0.7 % (0.0-1.8) 09/16/16 09:58 Lymph # 1.3 K/mm3 (1.2-5.4) 09/16/16 09:58 [place] # 0.5 K/mm3 (0.0-0.8) 09/16/16 09:58 Eos # 0.0 K/mm3 (0.0-0.4) 09/16/16 09:58 Baso # 0.1 K/mm3 (0.0-0.1) 09/16/16 09:58 Seg Neutrophils % 81.5 % (40.0-70.0) H 09/16/16 09:58 Seg Neutrophils # 8.5 K/mm3 (1.8-7.7) H 09/16/16 09:58 POC ABG pH 7.437 (7.35-7.45) 09/17/16 00:12 POC ABG pCO2 35.1 (35-45) 09/17/16 00:12 POC ABG pO2 172 (80-105) H 09/17/16 00:12 POC ABG HCO3 23.7 09/17/16 00:12 POC ABG Total CO2 25 09/17/16 00:12 POC ABG O2 Sat 100 09/17/16 00:12 POC ABG Base Excess 0 09/17/16 00:12 FiO2 36 % 09/17/16 00:12 Sodium 139 mmol/L (137-145) 09/16/16 09:58 Potassium 4.3 mmol/L (3.6-5.0) 09/16/16 09:58 Chloride 101.1 mmol/L (98-107) 09/16/16 09:58 Carbon Dioxide 23 mmol/L (22-30) 09/16/16 09:58 Anion Gap 19 mmol/L 09/16/16 09:58 BUN 6 mg/dL (7-17) L 09/16/16 09:58 Creatinine 0.7 mg/dL (0.7-1.2) 09/16/16 09:58 Estimated GFR > 60 ml/min 09/16/16 09:58 BUN/Creatinine Ratio 8.57 % 09/16/16 09:58 Glucose 97 mg/dL (65-100) 09/16/16 09:58 POC Glucose 127 (70-105) H 09/15/16 20:17 Calcium 8.1 mg/dL (8.4-10.2) L 09/16/16 09:58 Phosphorus 2.7 mg/dL (2.5-4.5) 09/16/16 04:20 Magnesium 1.9 mg/dL (1.7-2.3) 09/16/16 04:20 Total Bilirubin 0.7 mg/dL (0.1-1.2) 09/16/16 09:58 AST 33 units/L (5-40) 09/16/16 09:58 ALT 20 units/L (7-56) 09/16/16 09:58 Alkaline Phosphatase 56 units/L (35-129) 09/16/16 09:58 Total Creatine Kinase 204 units/L (30-135) H 09/15/16 20:34 CK-MB (CK-2) 2.5 ng/mL (0.0-4.0) 09/15/16 20:34 CK-MB (CK-2) Rel Index 1.2 (0-4) 09/15/16 20:34 Troponin T < 0.010 ng/mL (0.00-0.029) 09/16/16 22:43 Total Protein 7.3 g/dL (6.3-8.2) 09/16/16 09:58 Albumin 3.5 g/dL (3.9-5) L 09/16/16 09:58 Albumin/Globulin Ratio 0.9 % 09/16/16 09:58 HCG, Qual Negative (Negative) 09/11/16 11:27
[2016-09-17] MEDS: ZOFRAN IV PRN (08:14)
[2016-09-17] MEDS: LOVENOX SUB-Q SCH (09:00)
[2016-09-17] MEDS ORDERED: LEXISCAN IV ONE ×2 (10:11→10:17)
--- NOTE | 2016-09-17 11:53 | Progress Note ---
Subjective Date of service: 09/17/16 Interval history: seen and examined at bedside; 24hour events reviewed; nursing and respiratory care staff consulted; no adverse overnight events reported to me; Objective Vital Signs - 12hr 09/17/16 09/17/16 09/17/16 01:13 05:39 08:00 Temperature 97.6 F 98.1 F 98.6 F Pulse Rate Pulse Rate [ 67 67 67 Brachial] Respiratory 20 20 18 Rate Blood Pressure Blood Pressure 116/50 111/71 116/57 [Left Arm] O2 Sat by Pulse 100 100 95 Oximetry 09/17/16 09/17/16 09/17/16 10:16 10:24 10:25 Temperature Pulse Rate 65 108 H 99 H Pulse Rate [ Brachial] Respiratory Rate Blood Pressure 125/57 115/56 98/59 Blood Pressure [Left Arm] O2 Sat by Pulse Oximetry 09/17/16 09/17/16 09/17/16 10:26 10:27 10:28 Temperature Pulse Rate 91 H 89 86 Pulse Rate [ Brachial] Respiratory Rate Blood Pressure 115/58 115/63 124/59 Blood Pressure [Left Arm] O2 Sat by Pulse Oximetry 09/17/16 10:29 Temperature Pulse Rate 85 Pulse Rate [ Brachial] Respiratory Rate Blood Pressure 122/59 Blood Pressure [Left Arm] O2 Sat by Pulse Oximetry CBC and BMP: 09/16/16 09:58 09/16/16 09:58 ABG, PT/INR, D-dimer: ABG POC ABG pH 7.437 (7.35-7.45) 09/17/16 00:12 POC ABG pCO2 35.1 (35-45) 09/17/16 00:12 POC ABG pO2 172 (80-105) H 09/17/16 00:12 POC ABG HCO3 23.7 09/17/16 00:12 POC ABG Total CO2 25 09/17/16 00:12 POC ABG O2 Sat 100 09/17/16 00:12 Abnormal lab findings: Abnormal Labs 09/11/16 09/15/16 09/15/16 11:27 20:17 20:34 WBC Lymph % (Auto) Seg Neutrophils % Seg Neutrophils # POC ABG pO2 Sodium BUN Glucose POC Glucose 127 H Calcium Total Creatine Kinase 204 H Albumin 3.7 L 09/15/16 09/15/16 09/16/16 20:34 23:47 09:58 WBC 12.5 H Lymph % (Auto) 12.7 L Seg Neutrophils % 81.5 H Seg Neutrophils # 8.5 H POC ABG pO2 Sodium 136 L BUN 6 L Glucose 145 H POC Glucose Calcium 7.8 L Total Creatine Kinase Albumin 09/16/16 09/16/16 09/17/16 09:58 11:14 00:12 WBC Lymph % (Auto) Seg Neutrophils % Seg Neutrophils # POC ABG pO2 137 H 172 H Sodium BUN 6 L Glucose POC Glucose Calcium 8.1 L Total Creatine Kinase Albumin 3.5 L
[2016-09-17] MEDS: NORCO PO PRN ×2 (12:30→18:00)
--- NOTE | 2016-09-17 13:29 | Treadmill Report ---
THALLIUM STRESS TEST LEFT VENTRICLE: Left ventricular chamber size is within normal. Perfusion study demonstrates homogeneous uptake of the tracer in all segments, no significant defects identified. Gated analysis demonstrates normal left ventricular systolic function, ejection fraction 59%. CONCLUSION: Normal myocardial perfusion study. JOB# [id number] CA/NTS
--- NOTE | 2016-09-17 14:19 | Progress Note ---
Assessment and Plan POD2 sleeve gastrectomy cardiac and neuro work up negative. Still complains of wound pain while walking and chest pain to swallowing which is expected after sleeve gastrectomy Pateint refused to be discharged. we will keep her so that she can be more comfortable ambulating and drinking am labs Subjective Patient Reports: Positive: no new complaints, other (continue with incisional pain while ambulating) Objective Vital Signs - 12hr 09/17/16 09/17/16 09/17/16 05:39 08:00 10:16 Temperature 98.1 F 98.6 F Pulse Rate 65 Pulse Rate [ 67 67 Brachial] Respiratory 20 18 Rate Blood Pressure 125/57 Blood Pressure 111/71 116/57 [Left Arm] O2 Sat by Pulse 100 95 Oximetry 09/17/16 09/17/16 09/17/16 10:24 10:25 10:26 Temperature Pulse Rate 108 H 99 H 91 H Pulse Rate [ Brachial] Respiratory Rate Blood Pressure 115/56 98/59 115/58 Blood Pressure [Left Arm] O2 Sat by Pulse Oximetry 09/17/16 09/17/16 09/17/16 10:27 10:28 10:29 Temperature Pulse Rate 89 86 85 Pulse Rate [ Brachial] Respiratory Rate Blood Pressure 115/63 124/59 122/59 Blood Pressure [Left Arm] O2 Sat by Pulse Oximetry 09/17/16 09/17/16 09/17/16 12:15 12:20 12:30 Temperature Pulse Rate Pulse Rate [ 67 Brachial] Respiratory 20 20 20 Rate Blood Pressure Blood Pressure 131/60 [Left Arm] O2 Sat by Pulse Oximetry - General physical appearance well developed, no pain (appropriate incisional pain), obese - Respiratory normal expansion, clear to auscultation - Abdomen soft, bowel sounds normal, wound (c/d/i) - Psychiatric oriented to time, oriented to person, oriented to place, speech is normal - Labs 09/16/16 09:58 09/16/16 09:58
[2016-09-18] MEDS: TORADOL IV SCH ×2 (01:08→06:15)
[2016-09-18] MEDS: NORCO PO PRN ×3 (02:45→13:30)
[2016-09-18 05:51] LABS: Basophils % (Auto) 0.8 % (0.0-1.8); Eosinophils % (Auto) 2.3 % (0.0-4.3); Hemoglobin 10.1 gm/dl (10.1-14.3); Mean Corpuscular HGB Conc 34 % (30-34); Mean Corpuscular Hemoglobin 29 pg (28-32); Mean Corpuscular Volume 85 fl (79-97); Platelet Count 260 K/mm3 (140-440); Red Blood Count 3.51 M/mm3 (3.65-5.03); White Blood Count 6.4 K/mm3 (4.5-11.0)
[2016-09-18 06:06] LABS: BUN/Creatinine Ratio 11.42; Blood Urea Nitrogen 8 mg/dL (7-17); Calcium 7.9 mg/dL (8.4-10.2); Carbon Dioxide 25 mmol/L (22-30); Chloride 103.5 mmol/L (98-107); Glucose 83 mg/dL (65-100); Potassium 3.5 mmol/L (3.6-5.0); Sodium 139 mmol/L (137-145)
[2016-09-18 06:07] LABS: Anion Gap 14 mmol/L
[2016-09-18] MEDS: LACTATED RINGERS 1,000 ML IV SCH (07:00)
[2016-09-18] MEDS ORDERED: FLEET PR NR (07:51)
[2016-09-18] MEDS: ZOFRAN IV PRN (09:20)
[2016-09-18] MEDS: LOVENOX SUB-Q SCH (09:26)
[2016-09-18] MEDS: PEPCID IV SCH (09:26)
--- NOTE | 2016-09-18 09:53 | Discharge Summary ---
Providers - Providers Date of Admission: 09/15/16 12:43 Date of discharge: 09/18/16 Attending physician: BLAIR POLO MD 09/15/16 20:44 Consult to Physician [CONS] Urgent Consulting Provider: TY WRIGHT Reason For Exam: AMS Place consult to:: Dr. Dotson Notified:: yes If yes, spoke with:: Dr. Dotson Time called:: 20:30 09/15/16 22:56 Consult to Physician [CONS] Routine Consulting Provider: SHAZIA HUTSON Reason For Exam: seizures Place consult to:: dr hutson Notified:: dr reeves Phone number called:: ------ Was contact made?: Yes If yes, spoke with:: left msg on machine Time called:: 07:19 09/15/16 22:57 Consult to Physician [CONS] Routine Consulting Provider: DAVE MARTIN Reason For Exam: seizures/myoclonic seizures Place consult to:: dr martin Notified:: --- Phone number called:: [phone] Was contact made?: Yes If yes, spoke with:: place on list Time called:: 07:21 Primary care physician: SUDARSHAN MAN Hospitalization Reason for admission: s/p Gastric sleeve Condition: Good Disposition: DISCHARGED TO HOME OR SELFCARE Core Measure Documentation - Palliative Care Palliative Care/ Comfort Measures: Not Applicable - Core Measures Any of the following diagnoses?: none Exam - Constitutional Vitals: Temp Pulse Resp BP Pulse Ox 98.2 F 69 16 108/63 100 09/18/16 08:00 09/18/16 08:00 09/18/16 08:10 09/18/16 08:00 09/18/16 08:00 General appearance: Present: no acute distress - EENT Eyes: Present: PERRL - Neck Neck: Present: supple - Respiratory Respiratory effort: normal Respiratory: bilateral: CTA - Cardiovascular Rhythm: regular - Extremities Extremities: No edema Peripheral Pulses: within normal limits - Abdominal General gastrointestinal: Present: soft, other (soft, non distended. appropriate incisional TTP. ) - Psychiatric Psychiatric: cooperative Plan Activity: advance as tolerated (no heavy lifting) Diet: other (Bariatric stage 1) Wound: open to air, keep clean and dry Special Instructions: no heavy lifting Follow up with: SUDARSHAN MAN [Primary Care Provider] - 7 Days HUMBERTO KUMAR MD [Staff Physician] - 7 Days
[2016-09-18] MEDS ORDERED: GLYCERIN ADULT 2 GM PR PRN (10:00)
--- NOTE | 2016-09-18 11:51 | Progress Note ---
Subjective Date of service: 09/18/16 Interval history: seen and examined at bedside; 24hour events reviewed; nursing and respiratory care staff consulted; no adverse overnight events reported to me; Objective Vital Signs - 12hr 09/18/16 09/18/16 09/18/16 00:37 01:45 02:45 Temperature 98.3 F Pulse Rate [ Apical] Pulse Rate [ 66 68 Brachial] Respiratory 20 20 Rate Blood Pressure 84/37 101/49 [Left Arm] O2 Sat by Pulse 99 Oximetry 09/18/16 09/18/16 09/18/16 03:45 06:15 06:45 Temperature 98.6 F Pulse Rate [ 65 Apical] Pulse Rate [ Brachial] Respiratory 18 20 20 Rate Blood Pressure 101/54 [Left Arm] O2 Sat by Pulse 100 Oximetry 09/18/16 09/18/16 08:00 08:10 Temperature 98.2 F Pulse Rate [ 69 Apical] Pulse Rate [ Brachial] Respiratory 16 16 Rate Blood Pressure 108/63 [Left Arm] O2 Sat by Pulse 100 Oximetry CBC and BMP: 09/18/16 05:18 09/18/16 05:18 ABG, PT/INR, D-dimer: ABG POC ABG pH 7.437 (7.35-7.45) 09/17/16 00:12 POC ABG pCO2 35.1 (35-45) 09/17/16 00:12 POC ABG pO2 172 (80-105) H 09/17/16 00:12 POC ABG HCO3 23.7 09/17/16 00:12 POC ABG Total CO2 25 09/17/16 00:12 POC ABG O2 Sat 100 09/17/16 00:12 Abnormal lab findings: Abnormal Labs 09/11/16 09/15/16 09/15/16 11:27 20:17 20:34 WBC RBC Lymph % (Auto) Seg Neutrophils % Seg Neutrophils # POC ABG pO2 Sodium Potassium BUN Glucose POC Glucose 127 H Calcium Total Creatine Kinase 204 H Albumin 3.7 L 09/15/16 09/15/16 09/16/16 20:34 23:47 09:58 WBC 12.5 H RBC Lymph % (Auto) 12.7 L Seg Neutrophils % 81.5 H Seg Neutrophils # 8.5 H POC ABG pO2 Sodium 136 L Potassium BUN 6 L Glucose 145 H POC Glucose Calcium 7.8 L Total Creatine Kinase Albumin 09/16/16 09/16/16 09/17/16 09:58 11:14 00:12 WBC RBC Lymph % (Auto) Seg Neutrophils % Seg Neutrophils # POC ABG pO2 137 H 172 H Sodium Potassium BUN 6 L Glucose POC Glucose Calcium 8.1 L Total Creatine Kinase Albumin 3.5 L 09/18/16 09/18/16 05:18 05:18 WBC RBC 3.51 L Lymph % (Auto) 48.2 H Seg Neutrophils % Seg Neutrophils # POC ABG pO2 Sodium Potassium 3.5 L BUN Glucose POC Glucose Calcium 7.9 L Total Creatine Kinase Albumin
--- NOTE | 2016-09-18 14:21 | Progress Note ---
Assessment and Plan Assessment and plan: 1. Myoclonic jerks After discussing with the patient and her family, it appears that they are a behavioral issue, no further workup is needed, neurology input appreciated 2. Chest pain serial trop and stress test negative, it is likely related to her abdominal pain /GERD, bloating, No further workup 3. Pain control and advance of diets past surgery team. Medicine will sign off, please re-consult as needed History Interval history: no complaints today. Hospitalist Physical - Physical exam Narrative exam: General: Patient appears well in no distress HEENT: MMM, EOMI cardiac: S1-S2 heard lungs: clear to auscultation, abdomen: soft, nontender, nondistended bowel sounds positive extremities: no edema clubbing or cyanosis Skin: no rash or lesion Neuro: no focal deficit Psych: appropriate behavior and mood, cognition intact - Constitutional Vitals: Temp Pulse Resp BP Pulse Ox 98.2 F 69 16 108/63 99 09/18/16 08:00 09/18/16 08:00 09/18/16 08:10 09/18/16 08:00 09/18/16 12:39 General appearance: Present: no acute distress Results - Labs CBC & Chem 7: 09/18/16 05:18 09/18/16 05:18 Labs: Laboratory Last Values WBC 6.4 K/mm3 (4.5-11.0) 09/18/16 05:18 RBC 3.51 M/mm3 (3.65-5.03) L 09/18/16 05:18 Hgb 10.1 gm/dl (10.1-14.3) 09/18/16 05:18 Hct 33.0 % (30.3-42.9) 09/18/16 05:18 MCV 85 fl (79-97) 09/18/16 05:18 MCH 29 pg (28-32) 09/18/16 05:18 MCHC 34 % (30-34) 09/18/16 05:18 RDW 14.0 % (13.2-15.2) 09/18/16 05:18 Plt Count 260 K/mm3 (140-440) 09/18/16 05:18 Lymph % (Auto) 48.2 % (13.4-35.0) H 09/18/16 05:18 [place] % (Auto) 6.5 % (0.0-7.3) 09/18/16 05:18 Eos % (Auto) 2.3 % (0.0-4.3) 09/18/16 05:18 Baso % (Auto) 0.8 % (0.0-1.8) 09/18/16 05:18 Lymph # 3.1 K/mm3 (1.2-5.4) 09/18/16 05:18 [place] # 0.4 K/mm3 (0.0-0.8) 09/18/16 05:18 Eos # 0.1 K/mm3 (0.0-0.4) 09/18/16 05:18 Baso # 0.1 K/mm3 (0.0-0.1) 09/18/16 05:18 Seg Neutrophils % 42.2 % (40.0-70.0) 09/18/16 05:18 Seg Neutrophils # 2.7 K/mm3 (1.8-7.7) 09/18/16 05:18 POC ABG pH 7.437 (7.35-7.45) 09/17/16 00:12 POC ABG pCO2 35.1 (35-45) 09/17/16 00:12 POC ABG pO2 172 (80-105) H 09/17/16 00:12 POC ABG HCO3 23.7 09/17/16 00:12 POC ABG Total CO2 25 09/17/16 00:12 POC ABG O2 Sat 100 09/17/16 00:12 POC ABG Base Excess 0 09/17/16 00:12 FiO2 36 % 09/17/16 00:12 Sodium 139 mmol/L (137-145) 09/18/16 05:18 Potassium 3.5 mmol/L (3.6-5.0) L 09/18/16 05:18 Chloride 103.5 mmol/L (98-107) 09/18/16 05:18 Carbon Dioxide 25 mmol/L (22-30) 09/18/16 05:18 Anion Gap 14 mmol/L 09/18/16 05:18 BUN 8 mg/dL (7-17) 09/18/16 05:18 Creatinine 0.7 mg/dL (0.7-1.2) 09/18/16 05:18 Estimated GFR > 60 ml/min 09/18/16 05:18 BUN/Creatinine Ratio 11.42 % 09/18/16 05:18 Glucose 83 mg/dL (65-100) 09/18/16 05:18 POC Glucose 127 (70-105) H 09/15/16 20:17 Calcium 7.9 mg/dL (8.4-10.2) L 09/18/16 05:18 Phosphorus 2.7 mg/dL (2.5-4.5) 09/16/16 04:20 Magnesium 1.9 mg/dL (1.7-2.3) 09/16/16 04:20 Total Bilirubin 0.7 mg/dL (0.1-1.2) 09/16/16 09:58 AST 33 units/L (5-40) 09/16/16 09:58 ALT 20 units/L (7-56) 09/16/16 09:58 Alkaline Phosphatase 56 units/L (35-129) 09/16/16 09:58 Total Creatine Kinase 204 units/L (30-135) H 09/15/16 20:34 CK-MB (CK-2) 2.5 ng/mL (0.0-4.0) 09/15/16 20:34 CK-MB (CK-2) Rel Index 1.2 (0-4) 09/15/16 20:34 Troponin T < 0.010 ng/mL (0.00-0.029) 09/16/16 22:43 Total Protein 7.3 g/dL (6.3-8.2) 09/16/16 09:58 Albumin 3.5 g/dL (3.9-5) L 09/16/16 09:58 Albumin/Globulin Ratio 0.9 % 09/16/16 09:58 HCG, Qual Negative (Negative) 09/11/16 11:27
[2016-09-18 17:26] VITALS: BP 130/84
== END 2016-09-18 17:50 | disposition home or self-care (01) | DRG 327 ==
LOC: 3A 12:43 → 2B-SURG 18:47 → CC1 22:53 → 2B-SURG 09-16 21:49 → UNDODISIN 09-16 21:50
PROVIDERS: ADMIT Specialist; ATTEND Internal Medicine
PROC: 0BQS4ZZ (ICD-10-PCS; principal; 2016-09-16)
PROC: 0DB64Z3 Excision of Stomach, Percutaneous Endoscopic Approach, Vertical (ICD-10-PCS; principal; 2016-09-16)
PROC: 0BQR4ZZ (ICD-10-PCS; principal; 2016-09-16)
PROC: 4A033R1 Measurement of Arterial Saturation, Peripheral, Percutaneous Approach (ICD-10-PCS; principal; 2016-09-16)
DX: K44.9 Diaphragmatic hernia without obstruction or gangrene (principal); Z68.42 Body mass index [BMI] 45.0-49.9, adult; E66.01 Morbid (severe) obesity due to excess calories; R56.9 Unspecified convulsions; G47.30 Sleep apnea, unspecified; G25.3 Myoclonus; K21.9 Gastro-esophageal reflux disease without esophagitis; J45.909 Unspecified asthma, uncomplicated; Z88.6 Allergy status to analgesic agent; Z82.49 Family history of ischemic heart disease and other diseases of the circulatory system
CPT/HCPCS: 36415; 36600; 70450; 71010; 78452; 80048; 80053; 82550; 82553; 82803; 82962; 83735; 84100; 84484; 84703; 85025; 85027; 88307; 93017; 94760; 95819; A9502; C9250; J0690; J1100; J1170; J1200; J1650; J1885; J1953; J2060; J2250; J2405; J2704; J2785; J3010; J7030; J7120